=== PATIENT | male | born 1975 | race African-American/Black ===

== ENCOUNTER 2018-08-27 12:45 | Inpatient (IN) ==
[2018-08-27] MEDS ORDERED: ATIVAN IV ONE (13:59)
--- NOTE | 2018-08-27 14:09 | PROVIDER DOCUMENTATION ---
This chart was entered by Lexie Loja Scribe, acting as scribe for Herb Ruggiero MD. HPI-Neurological Disorder - General Chief Complaint: Stroke-Like Symptoms Stated Complaint: WEAKNESS Time Seen by Provider: 08/27/18 13:12 Source: patient Allergies/Adverse Reactions: Patient Allergies Allergy/AdvReac Type Severity Reaction Status Date / Time ibuprofen [From Motrin] AdvReac Intermediate SEVERE Verified 10/21/14 12:05 ABDOMINAL PAIN Home Medications: Home Medication List Medication Instructions Recorded Confirmed Last Taken Type Metoprolol [Lopressor] 25 mg PO DAILY 10/21/14 10/21/14 10/21/14 05:30 History - History of Present Illness-Neuro Nature of Presenting Problem: Patient is a 43 year old male who presents with paresthesia and weakness to left side face, LUE and LLE. Patient reports having paresthesia last night and then started having weakness this morning when he woke. Reports having a CVA 2 months ago. States taking an 81 mg aspirin this morning. Reports having blurred vision this morning that has resolved. Severity: reports: mild Onset/Duration: reports: last night Timing: reports: still present, getting worse Context: reports: paresthesia (left facial, LUE and LLE), other (left facial, LUE and LLE weakness) Character of Altered Mental Status: reports: N/A Character of Deficits: reports: new weakness, altered sensation New weakness or altered sensation location:: reports: LUE, LLE, left facial Cognitive Baseline: alert, oriented x3 Associated Symptoms: reports: denies symptoms Similar Symptoms Previously?: Yes Recently seen or treated by another doctor?: Yes Review of Systems - Adult - REVIEW OF SYSTEMS - ADULT Constitutional: reports: no symptoms reported. denies: chills, fever, fatique Eyes: reports: no symptoms reported Ears, Nose, Mouth & Throat: reports: no symptoms reported Cardiovascular: reports: no symptoms reported. denies: chest pain, heart murmur, irregular heart rate Respiratory: reports: no symptoms reported Gastrointestinal: reports: no symptoms reported Genitourinary: reports: no symptoms reported Musculoskeletal: reports: no symptoms reported Integumentary: reports: no symptoms reported Neurological: reports: see HPI, paresthesia (left facial, LLE and LUE), other ( left facial, LLE and LUE weakness). denies: dizziness/vertigo, headache/migraines Psychiatric: reports: no symptoms reported Endocrine: reports: no symptoms reported Hematologic/Lymphatic: reports: no symptoms reported Allergic/Immunologic: reports: no symptoms reported All Other Systems: Reviewed and Negative Past History - Adult - PAST MEDICAL HISTORY-ADULT Review of Records: reports: Nursing Assessment Review, Medications Reviewed, Social history reviewed & non-contributory. Major Childhood Illnesses: reports: denies history Cardiovascular: reports: cardiac disease, HTN Respiratory: reports: denies history Gastrointestinal: reports: denies history Obstetrical/Gynecological: reports: denies history Genitourinary: reports: denies history Musculoskeletal: reports: denies history Neurological: reports: CVA Psychiatric: reports: denies history Endocrine/Immune: reports: denies history Other Conditions: reports: denies history - PRIOR SURGERIES/PROCEDURES Surgical/Procedure History: reports: appendectomy, cholecystectomy, orthopedic (extremity), other (heart cath) - IMMUNIZATION STATUS Childhood Immunizations: See Nurse Assessment Flu Vaccine: See Nurse Assessment - FAMILY HISTORY Family History: reviewed, not pertinent - SOCIAL HISTORY Smoking: cigarettes, less than 1 pack/day Provider spent 3-5 mins advising pt. on dangers of tobacco.: Discussed manners to quit use, and f/u contacts for add'l counseling. Substance Use: alcohol, marijuana Physical Exam- Neurological - Physical Exam-Neuro Initial Vital Signs Reviewed: Yes General Appearance: alert, no apparent distress. negative: lethargic, slow to respond Eye Exam: bilateral eye: normal inspection, PERRL, EOMI HENMT: moist mucous membranes. negative: angioedema, hearing deficit Head Injury: no evidence of injury. negative: contusions, ecchymosis, lacerations Neck: non-tender, normal inspection. negative: tender midline Respiratory: chest non-tender, lungs clear, normal breath sounds. negative: rales, rhonchi Cardiovascular: normal peripheral pulses, regular rate, rhythm. 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 negative: abnormal speech, facial droop Motor/Sensory: sensory deficit (left facial, LUE and LLE), weak motor strength LUE, weak motor strength LLE Neurologic: motor weakness (left facial, LUE, and LLE), sensory deficit (left facial, LUE, and LLE). negative: aphasia, facial droop Integumentary: normal color, normal turgor, warm/dry. negative: cyanosis, ecchymosis, rash Psych/Mental Status: normal mood/affect, oriented x 3. negative: anxious, paranoid Progress - PLAN OF CARE/RESULTS Progress/Plan/Lab Results: Vital Signs - 8 hr 08/27/18 13:30 08/27/18 15:30 Temperature 98.5 F 98.3 F Pulse Rate 57 L 58 L Respiratory Rate 14 14 Blood Pressure 165/103 171/99 O2 Sat by Pulse Oximetry 98 99 Laboratory Results - last 24 hr 08/27/18 08/27/18 08/27/18 15:41 15:45 15:45 WBC 7.56 RBC 4.82 Hgb 16.0 Hct 46.0 MCV 95.4 MCH 33.2 H MCHC 34.8 RDW Std Deviation 12.0 Plt Count 210 MPV 9.8 Immature Gran % (Auto) 0.3 Neut % (Auto) 59.6 Lymph % (Auto) 30.6 Edmunds % (Auto) 5.4 Eos % (Auto) 3.7 Baso % (Auto) 0.4 Immature Gran # (Auto) 0.02 Neut # (Auto) 4.51 Lymph # (Auto) 2.31 Edmunds # (Auto) 0.41 Eos # (Auto) 0.28 Baso # (Auto) 0.03 PT INR PTT (Actin FS) Sodium 140 Potassium 3.4 L Chloride 104 Carbon Dioxide 29 Anion Gap 7 BUN 9 Creatinine 1.0 Estimated GFR/1.73 m2 > 60 BUN/Creatinine Ratio 9 Glucose 88 Calculated Osmolality 278 Calcium 9.2 Total Bilirubin 0.67 AST 16 ALT 14 Alkaline Phosphatase 79 Troponin T Total Protein 7.1 Albumin 4.1 Globulin 3.0 Albumin/Globulin Ratio 1.4 Urine Source CLEAN CATCH Urine Color YELLOW Urine Turbidity CLEAR Urine pH 6.5 Ur Specific [place] 1.005 Urine Protein NEGATIVE Ur Glucose (Stick) NEGATIVE Ur Ketones (Stick) NEGATIVE Urine Blood NEGATIVE Urine Nitrite NEGATIVE Urine Bilirubin NEGATIVE Urobilinogen Dipstick NORMAL Urine Leukocytes NEGATIVE Urine WBC (Auto) <10 Urine RBC (Auto) <10 U Epithel Cells (Auto) <10 Urine Bacteria (Auto) NEGATIVE 08/27/18 08/27/18 15:45 15:45 WBC RBC Hgb Hct MCV MCH MCHC RDW Std Deviation Plt Count MPV Immature Gran % (Auto) Neut % (Auto) Lymph % (Auto) Edmunds % (Auto) Eos % (Auto) Baso % (Auto) Immature Gran # (Auto) Neut # (Auto) Lymph # (Auto) Edmunds # (Auto) Eos # (Auto) Baso # (Auto) PT 13.6 INR 0.96 PTT (Actin FS) 29.4 Sodium Potassium Chloride Carbon Dioxide Anion Gap BUN Creatinine Estimated GFR/1.73 m2 BUN/Creatinine Ratio Glucose Calculated Osmolality Calcium Total Bilirubin AST ALT Alkaline Phosphatase Troponin T < 0.010 Total Protein Albumin Globulin Albumin/Globulin Ratio Urine Source Urine Color Urine Turbidity Urine pH Ur Specific [place] Urine Protein Ur Glucose (Stick) Ur Ketones (Stick) Urine Blood Urine Nitrite Urine Bilirubin Urobilinogen Dipstick Urine Leukocytes Urine WBC (Auto) Urine RBC (Auto) U Epithel Cells (Auto) Urine Bacteria (Auto) Orders Category Date Time Status Admit Patient To Observation Status Routine AdmDCTranf 08/27/18 17:[address] HEAD W/O CONTRAST [CT] Stat Exams 08/27/18 13:30 Completed CBC WITH ELECTRONIC DIFF [HEME] Stat Lab 08/27/18 15:45 Completed COMPREHENSIVE METABOLIC PANEL [CHEM] Stat Lab 08/27/18 15:45 Completed PT [PROTIME WITH INR] [COAG] Stat Lab 08/27/18 15:45 Completed PTT [COAG] Stat Lab 08/27/18 15:45 Completed TROPONIN T Stat Lab 08/27/18 15:45 Completed URINALYSIS [URINALYSIS] Stat Lab 08/27/18 15:41 Completed Aspirin Med 08/27/18 15:33 Discontinued 325 mg PO NOW ONE Lorazepam [Ativan] Med 08/27/18 13:59 Discontinued 1 mg IV NOW ONE Potassium Chloride E.r. [Klor-Con] Med 08/27/18 17:30 Active 40 meq PO Q4H EKG [EKG] Stat Ther 08/27/18 14:01 Draft Transfer/Admit Order [TRANSFER] Routine Transfer 08/27/18 17:27 Ordered Result Diagrams: 08/27/18 15:45 08/27/18 15:45 - EKG 1 Time of EKG reading by physician:: 14:15 EKG Read and Signed by:: Herb Ruggiero EKG Interpretation (*Must complete 3 of following elements*): Abnormal Rate: 55 Rhythm: sinus bradycardia HI Interval: normal Comments: otherwise normal ECG - CT/MRI 1 CT Study: Head Impression: See EMR Report ( EXAM: CT HEAD W/O CONTRAST HISTORY: stroke like sx TECHNIQUE: CT head without contrast COMPARISON: None. FINDINGS: No parenchymal hemorrhage. No epidural or subdural hematoma. No subarachnoid hemorrhage. No mass identified on this noncontrasted exam. No hydrocephalus. No sinus opacification. IMPRESSION: No hemorrhage. Negative brain CT without contrast. This exam was performed using automated exposure control, adjustment of mA or kV according to patient size, and/or use of iterative reconstruction technique. Electronically signed by Wild Kruger 08/27/2018 2:30 PM 08/27/18 1430 Interpreting Physician: Wild Kruger MD Dictated Date/Time: 08/27/18 1428 cc: Herb Ruggiero MD; None,PCP) - CONSULTS/PCP/HOSPITALIST Notification #1 *Consult/PCP/Hospitalist*: MEETA Allen for Hospitalist Time Discussed: 16:38 Reason/Comments: Dr. Ruggiero consulted with Tiffany about patient. Consult Disposition: Will see in ED, Admit Departure - Departure Date of Disposition Decision: 08/27/18 Time of Disposition Decision: 16:38 DIAGNOSIS: CVA (cerebral vascular accident), HTN (hypertension) Disposition: ADMITTED INPATIENT 09 Certified Medical Emergency: Emergent Condition: Stable Referrals and Follow-Ups: None,PCP [Primary Care Provider] - Discharge Education: Steps to Quit Smoking, [id number] - Critical Care Note This patient required my direct & personal management of CC.: No Attestation - Physician/ NIKI Attestation Patient care was provided by Advanced Practice Provider:: No The physician spent face to face time with patient:: Yes Advanced Practice Provider documentation review:: Supervising physician onsite and consulted in the evaluation and care of this patient. The physician did have a face to face encounter with the patient. - NIH Stroke Scale Level of Consciousness: 0-Alert LOC Questions (ask month and age): 0-Answers Both Correctly LOC Commands (ask to open & close eyes;make a fist, let go): 0-Obeys Both Correctly Best Gaze (horizontal eye movement): 0-Normal Visual (use finger movement, counting or visual threat): 0-No Visual Loss Facial Palsy (show teeth or raise eyebrows & close eyes tght: 0-Symmetrical Movement Motor Function-left arm: 1-Drift Motor Function-right arm: 0-Normal Motor Function-left le-Drift Motor Function-right le-Normal Limb Ataxia(mcgcrq-baay-bggkyh, or heel to fishman): 0-No Ataxia Sensory(pin prick to face,arms,trunk,legs-compare side/side): 1-Mild to Moderate Decrease in Sensation Best Language(name item/read sentence.Ex-Down to Earth): 0-No Aphasia Dysarthria(Pt read words or say words Ex.Mama,Tip-Top,Thanks: 0-Normal Articulation Extinction and Inattention: 0-Normal NIH Total Score: 3 This chart was documented by the indicated scribe, (Lexie Loja, [place]) and accurately reflects the services I performed and decisions made by me, Herb Ruggiero MD, as attested by the provider's signature.
--- NOTE | 2018-08-27 14:30 | EKG Report ---
Test Performed on : 08/27/2018 2:15:21 PM Test Reason : stroke Blood Pressure : / mmHG Vent. Rate : 055 BPM Atrial Rate : 055 BPM P-R Int : 154 ms QRS Dur : 102 ms QT Int : 412 ms P-R-T Axes : 075 044 030 degrees QTc Int : 394 ms Sinus bradycardia. Otherwise normal ECG When compared with ECG of 21-OCT-2014 14:43, No significant change was found Unconfirmed Result
--- NOTE | 2018-08-27 14:32 | Diag Imaging Result Doc PS360 ---
EXAM: CT HEAD W/O CONTRAST HISTORY: stroke like sx TECHNIQUE: CT head without contrast COMPARISON: None. FINDINGS: No parenchymal hemorrhage. No epidural or subdural hematoma. No subarachnoid hemorrhage. No mass identified on this noncontrasted exam. No hydrocephalus. No sinus opacification. IMPRESSION: No hemorrhage. Negative brain CT without contrast. This exam was performed using automated exposure control, adjustment of mA or kV according to patient size, and/or use of iterative reconstruction technique. Electronically signed by Wild Kruger 08/27/2018 2:30 PM
[2018-08-27] MEDS ORDERED: ASPIRIN PO ONE (15:33)
[2018-08-27 15:56] LABS: URINE SOURCE CLEAN CATCH
[2018-08-27 15:59] LABS: BASO# 0.03 X1000 (0.0-0.2); BASO% 0.4 % (0.0-0.8); EOS# 0.28 X1000 (0.0-0.7); EOS% 3.7 % (0.0-10.0); IMM GRAN# 0.02 X1000 (0.0-0.04); IMM GRAN% 0.3 % (0.0-0.5); LYMPH# 2.31 X1000 (1.2-3.4); LYMPH% 30.6 % (20.5-51.1); MCH 33.2 PG (27-31); MCHC 34.8 g/dL (33-37); MCV 95.4 FL (81-99); MONO# 0.41 X1000 (0.11-0.59); MONO% 5.4 % (1.7-9.3); MPV 9.8 FL (7.4-10.4); NEUT# 4.51 X1000 (1.4-6.5); NEUT% 59.6 % (42.2-75.2); PLT 210 X1000 (130-400); RBC 4.82 XMIL (4.7-6.1); WBC 7.56 X1000 (4.8-10.8)
[2018-08-27 16:14] LABS: INR 0.96; PROTIME 13.6 Seconds (11.0-16.0)
[2018-08-27 16:15] LABS: PTT 29.4 Seconds (22.3-41.8)
[2018-08-27 16:17] LABS: AGAP 7; ALB/GLOB RATIO 1.4; ALBUMIN 4.1 g/dL (3.5-5.0); ALKALINE PHOSPHATASE 79 U/L (32-122); BUN 9 mg/dL (8-22); CALCIUM 9.2 mg/dL (8.8-10.2); CHLORIDE 104 mmol/L (98-107); COSMO 278; ESTIMATED GFR > 60; GLUCOSE 88 mg/dL (70-104); GOT 16 U/L (10-34); GPT 14 U/L (10-44); POTASSIUM 3.4 mmol/L (3.5-5.1); SODIUM 140 mmol/L (136-145); TCO2 29 mmol/L (25-35); TOTAL BILIRUBIN 0.67 mg/dL (0.20-1.00); TOTAL PROTEIN 7.1 g/dL (6.3-8.3)
[2018-08-27 16:19] LABS: BILIRUBIN URINE NEGATIVE (NEGATIVE); BLOOD URINE NEGATIVE (NEGATIVE); COLOR YELLOW; GLUCOSE URINE NEGATIVE (NEGATIVE); KETONE URINE NEGATIVE (NEGATIVE); LEUKOCYTES URINE NEGATIVE (NEGATIVE); NITRITE URINE NEGATIVE (NEGATIVE); PH URINE 6.5; PROTEIN URINE NEGATIVE (NEGATIVE); SP GRAVITY URINE 1.005; TURBIDITY URINE CLEAR (CLEAR); UROBILINOGEN URINE NORMAL (NORMAL)
[2018-08-27 16:24] LABS: UR EPITHELIAL CELLS <10 /HPF (<10); URINE BACTERIA NEGATIVE /HPF; URINE RBC <10 /HPF (<10); URINE WBC <10 /HPF (<10)
[2018-08-27] MEDS: KLOR-CON PO SCH ×2 (17:30→21:00)
[2018-08-27] MEDS ORDERED: TYLENOL PO PRN (18:01)
[2018-08-27 18:58] LABS: UR AMPHETAMINES QUAL NONE DETECTED (NONE DETECT); UR BARBITUATES QUAL NONE DETECTED (NONE DETECT); UR BENZODIAZEPIN QUAL NONE DETECTED (NONE DETECT); UR CANNABINOIDS QUAL PRESUMPTIVE POSITIVE (NONE DETECT); UR COCAINE QUAL NONE DETECTED (NONE DETECT); UR METHADONE QUAL NONE DETECTED (NONE DETECT); UR OPIATES QUAL NONE DETECTED (NONE DETECT); UR OXYCODONE QUAL NONE DETECTED (NONE DETECT); UR PCP QUAL NONE DETECTED (NONE DETECT)
--- NOTE | 2018-08-27 19:02 | HISTORY AND PHYSICAL ---
CHIEF COMPLAINT: Left upper extremity and left lower extremity weakness. HISTORY OF PRESENT ILLNESS: Mr. Gomes is a 43-year-old man with reported past medical history of CVA affecting left side of body. He was sent from his employment because of abnormal behavior and left upper extremity/left lower extremity weakness. The patient is not able to contribute to the history meaningfully, as he does not answer questions appropriately and he says he wants to sleep. He also states that he has been under a lot of stress. Apparently the patient states that he had a stroke affecting left upper and lower extremity in 06/2018 and was at [facility] for that. Since then he has had persistent numbness; however, today something happened at work, he is not sure what, which made coworkers called emergency medical services. He also tells me that when he woke up he was not feeling well and he took 2 doses of his baby aspirin, but could not tell me what was wrong. In the emergency room he was found to have normal vital signs except slight hypertension. CT scan of head was unremarkable. SUBJECTIVE: At the time of my evaluation, the patient is not able to tell me initially the reason why he is in the hospital and I had to prompt him with a lot of questions before he could tell me that he was sent from his working facility. He states that he wants to eat at the moment. He states he previously had history of hypertension and hyperlipidemia; however, otherwise he is not able to provide meaningful history. REVIEW OF SYSTEMS: Negative for headache, negative for blurring of vision. Negative for chest pain or shortness of breath. Otherwise, 12-point review of systems is unremarkable. HOME MEDICATION: He is listed to be taking metoprolol; however, he tells me that he takes amlodipine, could not tell me the dose, and baby aspirin. He also takes a cholesterol medication. Medication reconciliation is pending. PAST MEDICAL HISTORY: Includes CVA affecting left side upper and lower extremities, essential hypertension, hyperlipidemia. PAST SURGICAL HISTORY: Includes cholecystectomy, appendectomy and right wrist surgery because of fracture. ALLERGIES: He is listed to be allergic to ibuprofen. PERSONAL HISTORY: He was a 0-izvx-o-day smoker until a few years ago. Currently he smokes 1 or 2 cigarettes a day. He started smoking in his young age, so approximately he might have about 15 to 80-hjcq-hbzq smoking history. He is an occasional drinker. He is an occasional marijuana user. He denies the use of recreational substances, though, recently. His last marijuana was a few days ago. FAMILY HISTORY: He is not able to provide any family history meaningfully. PHYSICAL EXAMINATION: VITAL SIGNS: Currently vital signs suggest he is afebrile with temperature of 98.3 degrees, pulse 58, respiratory rate 14, blood pressure 170/99, saturating 99% on room air. GENERAL: He does not appear in any acute distress. HEENT: Oral cavity is moist. LUNGS: Air entry bilaterally equal. No wheeze, rhonchi or crackles. HEART: S1, S2 normal. No murmur, rub or gallop. ABDOMEN: Soft, nontender. He has a midline scar of previous abdominal surgery. EXTREMITIES: No lower extremity edema. He also has a well-healed scar of wrist surgery on the right wrist. NEUROLOGICAL: He is alert. He is oriented to himself, to me, to place but not with the situation entirely. Cranial nerve examination: Vision is grossly intact. Pupils are bilaterally equal, reacting to light. He is able to track both sides of the midline and up and down. He does not have any facial asymmetry. He is able to raise eyebrows and smile equally bothside of midline. He has good cough and swallowing. He is not able to answer the question related to taste. He is able to protrude tongue in midline. He is able to shrug both of his shoulders; however, has weakness of the left shoulder. Sensory examination: He denies being able to sense anything on crude touch on left upper and left lower extremity. On motor examination he has power 5/5 in right upper and lower extremity. He has power 0/5 in left upper and left lower extremity on examination; however, later on he was able to move in the bed using his left upper and left lower extremity while repositioning, but when I asked him to move his extremity, he states he is not able to. There is some inconsistency in neurological examination; however, during my examination he has significantly decreased anesthesiology medical doctor strength on left. His Babinski reflex has inconsistent response, but mostly it is plantar flexion bilaterally. His speech appears normal. I could not elicit cerebellar reflexes properly as he did not cooperate. LABORATORY DATA: Labs suggestive of normal hemoglobin, hematocrit and platelet. Normal coagulation. Hypokalemia, being replenished and normal urinalysis. Urine toxicology is pending. DIAGNOSTIC DATA: EKG is suggestive of normal sinus rhythm with sinus bradycardia. CT scan head did not have any acute intracranial pathology or old stroke. ASSESSMENT AND PLAN: Left upper extremity and left lower extremity weakness and decreased sensation. I am unclear if this is new or old. Head CT did not detect even an old infarct. It is possible this is a new-onset cerebrovascular accident. I will admit the patient under telemetry unit. He has received a dose of aspirin 325 mg. I will keep him on baby aspirin, high- dose statin, allow permissive hypertension up to systolic blood pressure of 220. Follow up with ultrasound carotids, MRA brain, MRI brain with and without contrast, and echocardiogram. We will observe him in the telemetry unit. He does have history of right wrist surgery. He is not able to provide the details, so I will go ahead and get an x-ray to rule out any metal object if the MRI services warrant. I will keep him on enoxaparin for deep venous thrombosis prophylaxis. Plan of care discussed with the patient. All of his questions been answered. cc: Jay Garrido MD MTDD
--- NOTE | 2018-08-27 21:01 | Diag Imaging Result Doc PS360 ---
EXAM: WRIST 2 VIEWS-RIGHT INDICATION: Rule out metal object. TECHNIQUE: 2 views COMPARISON: None. FINDINGS: There are mild degenerative changes at the radiocarpal joint and the MCP joint of the first digit. There is no discrete fracture, dislocation, or significant intrinsic osseous lesion, otherwise. Surrounding soft tissues are essentially unremarkable. No embedded radiopaque foreign body is identified. IMPRESSION: No embedded radiopaque foreign body identified. Electronically signed by Bird Clemens 08/27/2018 8:59 PM
[2018-08-28 05:53] LABS: BASO# 0.02 X1000 (0.0-0.2); BASO% 0.3 % (0.0-0.8); EOS# 0.31 X1000 (0.0-0.7); EOS% 5.3 % (0.0-10.0); HEMATOCRIT 43.8 % (42.0-52.0); HEMOGLOBIN 15.3 g/dL (14.0-18.0); IMM GRAN# 0.02 X1000 (0.0-0.04); IMM GRAN% 0.3 % (0.0-0.5); LYMPH# 2.02 X1000 (1.2-3.4); LYMPH% 34.3 % (20.5-51.1); MCH 33.3 PG (27-31); MCHC 34.9 g/dL (33-37); MCV 95.2 FL (81-99); MONO# 0.44 X1000 (0.11-0.59); MONO% 7.5 % (1.7-9.3); NEUT# 3.08 X1000 (1.4-6.5); NEUT% 52.3 % (42.2-75.2); PLT 211 X1000 (130-400); RDW 11.8 % (11.5-14.5); WBC 5.89 X1000 (4.8-10.8)
[2018-08-28 06:24] LABS: AGAP 7; ALB/GLOB RATIO 1.4; ALBUMIN 3.7 g/dL (3.5-5.0); ALKALINE PHOSPHATASE 72 U/L (32-122); BUN 10 mg/dL (8-22); CHLORIDE 108 mmol/L (98-107); COSMO 278; ESTIMATED GFR > 60; GLUCOSE 98 mg/dL (70-104); GOT 15 U/L (10-34); GPT 12 U/L (10-44); POTASSIUM 4.4 mmol/L (3.5-5.1); SODIUM 140 mmol/L (136-145); TCO2 25 mmol/L (25-35); TOTAL BILIRUBIN 0.75 mg/dL (0.20-1.00); TOTAL PROTEIN 6.4 g/dL (6.3-8.3)
[2018-08-28 06:29] LABS: CHOLESTEROL 164 mg/dL (0-200); HDL 36 mg/dL (35-55); LDL 104 mg/dL; TRIGLYCERIDES 122 mg/dL (39-160); VLDL 24 mg/dL
--- NOTE | 2018-08-28 09:24 | Diag Imaging Result Doc PS360 ---
MRI BRAIN W/WO CONTRAST - 08/27/2018 INDICATION: Left upper and lower ext weakness. Rule out CVA. COMPARISON: Head CT 08/27/2018 FINDINGS: The ventricles and sulci are normal in size and contour. No intracranial mass or hemorrhage. There is a single tiny focus of increased signal in the periventricular right white matter centrally. There is no abnormal contrast enhancement. There is right-sided mastoiditis. IMPRESSION: 1. Right-sided mastoiditis. 2. Minimal nonspecific white matter hyperintensity in the right central periventricular cerebral hemisphere. Electronically signed by Zachary Cunningham 08/28/2018 9:21 AM
--- NOTE | 2018-08-28 09:27 | Diag Imaging Result Doc PS360 ---
MRA BRAIN W/O CONTRAST - 08/27/2018 INDICATION: Rule out CVA TECHNIQUE: Noncontrast idhe-ts-[id number] technique was used COMPARISON: None FINDINGS: There is variant anatomy, the right anterior cerebral artery arises from the left anterior cerebral artery at the level of the anterior communicating artery, with no connection to the right internal carotid artery. There is no aneurysm or stenosis. No significant atherosclerotic irregularity. IMPRESSION: Variant anatomy. No acute disease. Electronically signed by Zachary Cunningham 08/28/2018 9:24 AM
[2018-08-28] MEDS: LOVENOX SUBQ SCH (10:27)
[2018-08-28] MEDS: ASPIRIN PO SCH (10:27)
--- NOTE | 2018-08-28 16:26 | ECHO REPORT ---
ORDER DATE: 08/27/2018 INTERPRETING PHYSICIAN: Александр Kc MD INDICATION: Thrombosis, stroke. M-MODE MEASUREMENTS: Left ventricle end diastole: 5.2 cm. Left ventricle end systole: 3.5 cm. Posterior wall: 1.1 cm. Interventricular septum: 1.1 cm. Left atrium: 3.1 cm. Aortic diameter: 3.1 cm. SUMMARY OF 2-DIMENSIONAL IMAGIN. Left ventricular function is normal. Ejection fraction is 62%. No wall motion abnormality is noted. 2. The aortic valve looks normal. Color flow mapping unremarkable. 3. The mitral valve looks normal. Color flow mapping unremarkable. 4. Pulsed wave Doppler of mitral inflow shows normal E/A ratio. 5. Tissue Doppler of septal and lateral mitral annulus averages 7 cm. There is no diastolic dysfunction. 6. Pulmonary venous flow is normal. 7. The pulmonic valve looks normal. Color flow mapping unremarkable. 8. The tricuspid valve shows a mild degree of regurgitation. 9. Pulmonary pressure is estimated at 26 mmHg. 10.There is no pericardial effusion, mass, and no thrombus. The study appears to be grossly within normal limits. cc: MD Jay Motley MD
--- NOTE | 2018-08-28 17:06 | PROGRESS NOTE ---
DATE: 08/28/2018 INTERVAL HISTORY: No acute events overnight. The patient has gotten his echocardiogram, ultrasound of carotids, the results of which are pending. He was asking me if he should go home. I discussed with him about still pending echocardiogram and ultrasound results and abnormal MRI finding and need for a Neurology evaluation. Currently, he is much more awake and alert and he is answering all questions appropriately. He tells me that he had been feeling unusual since yesterday morning. However, he made himself go to work. However, he then started feeling worsening of numbness and tingling of left upper and lower extremity, which prompted him to come to the emergency room. Currently, he states his weakness has pretty much resolved. He still has some numbness of the left upper and left lower extremity, which is better than before. OBJECTIVE: Vital signs: Temperature 98.3 degrees, pulse 61, respiratory 18, blood pressure 170/80, saturating 98% on room air. General: He does not appear in any acute distress. HEENT: Oral cavity is moist. Lungs: Air entry bilaterally equal. No wheeze, rhonchi, crackles. Cardiovascular: S1, S2 normal. No murmur, rub, or gallop. Abdomen: Soft, nontender. Extremities: No lower extremity edema. Neurologic: He is alert and oriented x3. Cranial nerve examination: No obvious facial asymmetry. His vision is grossly intact. Extraocular movements both sides of midline. Facial sensations intact. His hearing, speech, tongue protrusion, and cough are normal. He does have decreased sensation of left lower extremity as compared to right in the leg and foot. Otherwise, sensation is intact bilaterally. Motor examination is 5/5. Reflexes 2+. No dysdiadochokinesia. I did not check his gait, but he says he was able to come out of bed and go to the bathroom. MICROBIOLOGY: No data. IMAGING: Brain MRI had a right-sided mastoiditis. There was minimal white matter hyperintensity in the right central periventricular cerebral hemisphere which is nonspecific as per the report. Brain MRA had without any acute disease. LABORATORY: No leukocytosis. Hemoglobin, hematocrit, and platelets were normal. His potassium was repleted. His lipid panel had LDL of 104. ASSESSMENT: 1. Suspected cerebrovascular accident. 2. Hypertension with medication noncompliance. 3. Prior history of cerebrovascular accident, pending reports from [facility] in June 2018. 4. Marijuana use disorder. PLAN: Continue aspirin and add Plavix. Continue high-dose atorvastatin. I will start him on metoprolol once medication reconciliation is complete. I would also appreciate Neurology recommendations regarding further management. The patient mentions to me that previously he was told he had some congenital heart disease, the details of which are unclear. So, I decided to keep the patient inside the hospital as I await final echocardiogram results to rule out any intraventricular thrombus and I will also await ultrasound of carotids results. If both of them are within acceptable range, my plan is to discharge the patient home tomorrow. cc: Jay Garrido MD MTDD
[2018-08-28] MEDS: LOPRESSOR PO SCH ×2 (18:57→20:39)
[2018-08-28] MEDS ORDERED: LIPITOR PO SCH (21:00)
[2018-08-29 07:57] VITALS: BP 145/99
[2018-08-29] MEDS ORDERED: PLAVIX PO SCH (09:00)
[2018-08-29] MEDS: ASPIRIN PO SCH (09:29)
[2018-08-29] MEDS: LOPRESSOR PO SCH (09:30)
[2018-08-29] MEDS: LOVENOX SUBQ SCH (09:30)
--- NOTE | 2018-08-29 10:29 | CONSULTATION ---
DATE OF CONSULTATION: 08/29/2018 HISTORY OF PRESENT ILLNESS: Mr. Gomes is 43 years old and there is question of stroke. History from the patient is that he first had symptoms about 3 months ago with weakness and numbness in the right limbs, mostly in the leg causing him to have unsteady gait and he reports he asked his mother then if there might be a cane or crutch he could use. Those symptoms resolved within a few days, by his report. There was no facial asymmetry, speech difficulty, language deficit, vision disturbance, headache. A few weeks later, he noted similar symptoms with more discomfort and some tingling in the left limbs with unsteady gait. There was facial asymmetry. He had intended to help a relative with some work, but decided he should not do that because he felt bad. He was sleeping later and was waked by telephone call and apparently had some slurred speech on the telephone. He was taken by ambulance to [facility]. I have reviewed the records provided by [facility] showing moderately elevated blood pressures, complaint of left-sided numbness and weakness. Some examiners reported weakness in the left limbs and others reported normal strength and no focal deficits. "No effort" was listed on the NIHSS form for motor power in the left limbs. Workup included noncontrast CT of the head unremarkable, noncontrast brain MRI unremarkable (with no comment on the right hemisphere signal that we see on scan this admission), noncontrast CT of the cervical spine unremarkable, noncontrast CT of the lumbar spine showing degenerative changes, lumbar MRI showing degenerative changes, carotid ultrasound unremarkable. I believe he was discharged on amlodipine and hydrochlorothiazide, aspirin 81 mg, atorvastatin, but not metoprolol, which he reports he has been taking. Today, Mr. Gomes reports the left side has not felt completely recovered to normal since then, but he has been able to do some work. He did not have any more dramatic episodes until 2 days ago when he felt very weak, weaker on the left side, generally just felt bad in a way that is hard for him to describe. He felt tired and exhausted. He pushed himself to get up and get ready for work. He noticed face was crooked in the mirror. He went to work, was advised to present to the hospital, and did so. He was evaluated in the emergency room and admitted. He reports symptoms are much improved over the last 2 days, but still not back to baseline of several days ago. There are some inconsistencies in his history, and what I have recorded above is my best guess based on his report. PHYSICAL EXAMINATION: On exam, he is awake, alert, attentive. Speech is not dysarthric. Language function is intact. Memory seems good. Head and neck are unremarkable. Visual caballero are full tested grossly by confrontational finger counting. Extraocular movements are full. Facial motility is normal and symmetric. Gag is intact. Tongue is midline. Hearing is good. Shoulder shrug is equal. Strength is normal in the arms and legs. There was some inconsistent effort with testing the left limbs, particularly the left lower leg, but with distraction and repeated testing, he demonstrated normal power throughout. Tone is symmetric in the limbs. He did well on [id number] and [id number] testing bilaterally. Reflexes are symmetric, grading 2+ at the knees and ankles, 1+ at the wrists. Plantar response is silent bilaterally. Proprioception is good at the left middle finger PIP joint. He reports diminished pinprick and light touch appreciation over the left side of his body extending directly to the midline, including the face, scalp, neck, trunk, and limbs. Gait is little bit wide-based without specific hemiparetic pattern. IMPRESSION: 1. Subjective left-sided weakness and numbness without definite objective finding. 2. MRI finding of small lesion in the right hemisphere, which does not show diffusion restriction and is likely not recent ischemic infarction. This could be old ischemic infarction or could be other old lesion. Since this was not reported on the scan in [place], I do not know what to make of the current finding. 3. He has risk factors for cerebrovascular ischemic problems, including hypertension, dyslipidemia, cigarette smoking. He has reduced cigarette smoking, and I encouraged him to stop smoking completely. I encouraged him to be aggressive with management of his other risk factors. I encouraged him to become established with a primary clinic. I will be glad to see him as an outpatient for Neurology follow-up, if needed. I do not think we need anything further in the way of inpatient workup right now. Thanks for asking Neurology to see Mr. Gomes. cc: MD MALI Kaiser III
[2018-08-29] MEDS ORDERED: NORVASC PO SCH (13:30)
--- NOTE | 2018-08-30 12:31 | DISCHARGE SUMMARY ---
ADMISSION DATE: 08/27/2018 DISCHARGE DATE: 08/29/2018 DISCHARGE DIAGNOSES: 1. Subjective left-sided weakness and numbness without definite objective finding, likely transient ischemic attack. 2. Hypertension with possible medication noncompliance. 3. Prior history of cerebrovascular accident in June,. 4. Dyslipidemia. 5. Tobacco abuse. 6. Possible drug abuse, marijuana. PROCEDURES PERFORMED: 1. Head CT scan dated 08/27/2018. Impression: No hemorrhage, negative brain CT without contrast. 2. Echocardiogram dated 08/27/2018. In summary, ejection fraction is 62% with no wall motion abnormality. 3. Wrist x-ray dated 08/27/2018. Impression: No foreign body identified. CONSULTATIONS: Neurology Department. HOSPITAL COURSE: A 43-year-old male with a past medical history of CVA affecting his left side of the body. He was sent from his employment because of abnormal behavior and left upper extremity and lower extremity weakness. Apparently, upon admission, the patient was not able to contribute to the history meaningfully. He was not answering questions appropriately, and he said he wants to sleep. Also, this patient states that he has been under a lot of stress. As per the patient, he had a stroke affecting his left upper and lower extremity in June of 2018 at [facility]. Since then, he has had persistent numbness, however, the day of admission on 08/27/2018 as per the patient something happened at work. He is not sure about what happened, which made coworkers call [facility]. Apparently, he woke up and he was not feeling well. He took 2 doses of his baby aspirin, but he could not say what was wrong. In the emergency department, he was found to have normal vital signs except for hypertension. CT of the head was unremarkable. At the time of the physician evaluation, the patient was not able to tell the reason why he was in the hospital. At the end, he said that he was sent from his working facility. He states that he has a history of hypertension and hyperlipidemia, however, otherwise, he was not able to provide any meaningful history. His left upper extremity and left lower extremity were weak compared with the right side. At that time, it was not clear if this was new or old. Urinalysis was negative except for presumptive cannabinoid use in the urine toxicology. MRI of the head and MRA of the head as well as echocardiogram and carotic ultrasound were done, but we did not see any acute abnormality. Neurology Department evaluated this patient, and they state that this patient has a subjective left-sided weakness and numbness without any definite objective finding. The MRI finding of a small lesion in the right hemisphere which does not show the fusion restriction, and is likely not recent ischemic infarction. This could probably represent an old ischemic infarction or other lesion. This patient has some risk factor for CVA including hypertension, dyslipidemia and tobacco use. He was improving on a daily basis. Today, this patient was completely alert. He was oriented, and actually he wanted to go home. His blood pressure is still slightly elevated, but better compared with admission. I increased his blood pressure medication of amlodipine. As per the patient, he was taking 5 mg daily and I increased it to 10, the metoprolol which apparently he was taking 25 mg twice a day, now 12.5 mg twice a day. We will continue with the aspirin and we added Plavix. As per the patient, his left-sided weakness was better and now with this episode it is a little bit worse so he requested a cane to us. We gave him this cane so he can walk better. Plavix was added to his medications, and probably he needs to take it just for 1 month. I explained this in detail to the patient. I explained to him that he needs to follow up with Neurology Department, Dr. Mcdonald in 2 to 3 weeks to see if he needs to take this treatment longer than that. I talked to him about his tobacco use, and take the medications as prescribed. This patient will be discharged home. Since we did not see any lesion on the MRI and MRA, he can return to work tomorrow. He can use the cane that we provided to help with walking. He needs to take his medications as prescribed, and follow up with Dr. Mcdonald in 2 to 3 weeks. He will need to call for an appointment. CONDITION ON DISCHARGE: Upon discharge, the patient was in a stable medical condition. PHYSICAL EXAMINATION: Vital Signs: Temperature 99.3 degrees, pulse 65, respiratory rate 16, blood pressure 145/99, and oxygen saturation 98 on room air. HEENT: Head normocephalic. No trauma. PERRLA. Neck: Supple. No JVD. No masses. Central trachea. Chest: Clear to auscultation. No wheezing. No rales. Abdomen: Soft, nontender, and nondistended. No hepatosplenomegaly. Extremities: No edema. No clubbing. No cyanosis. Neurological: The patient is completely alert and oriented x3. He has mild left-sided weakness around 4/5 strength. He is able to walk without assistance. LABORATORY: No lab work done today, but yesterday WBC 5.8, hemoglobin 15.3, hematocrit 43.8, and platelets 211,000. Sodium 140, potassium 4.4, chloride 108, bicarbonate 25, BUN 10, creatinine 1, glucose 100, calcium 9, AST 15, ALT 12, and alkaline phosphatase 72, albumin 3.7, triglyceride 122, cholesterol 164, LDL 104, HDL 36 and TSH 0.86. DISCHARGE MEDICATIONS: 1. Acetaminophen 350 mg p.o. q.6 hours p.r.n. 2. Amlodipine 10 mg p.o. daily. 3. Aspirin 81 mg p.o. daily. 4. Atorvastatin 40 mg p.o. at bedtime. 5. Clopidogrel 75 mg p.o. daily for 1 month. 6. Lopressor 12.5 mg p.o. twice a day. TIME SPENT: Time discharging this patient 35 minutes. cc: Ney Rolon MD MTDD
--- NOTE | 2018-09-01 17:45 | Carotid Study ---
DATE: 08/27/2018 PROCEDURE: Bilateral carotid duplex. REQUESTING PHYSICIAN: Dr. Garrido. INTERPRETING PHYSICIAN: Dr. Carlos Sam. TECH: [employer]. INDICATIONS: Left side weakness. TIA versus CVA. OBSERVED DATA RIGHT LEFT Brachial Blood Pressure Carotid Pulse Bruits: Carotid/Sub DIAGRAM OF ULTRASOUND IMAGING R L RIGHT INT EXT INT EXT LEFT Wai (cm/s) Wai (cm/s) Subclavian 116/0 Subclavian 136/0 CCA Proximal 95/10 CCA Proximal 116/19 CCA Distal 77/19 CCA Distal 60/18 Bulb 77/17 Bulb 58/17 ICA Proximal 50/22 ICA Proximal 41/11 ICA Mid 59/23 ICA Mid 60/28 ICA Distal 55/25 ICA Distal 72/37 ECA 84/19 ECA 89/18 Vertebral 35/5 A Vertebral 42/17 A ICA/CCA Ratio 0.62 ICA/CCA Ratio 0.64 % Stenosis 0-39% % Stenosis 0-39% FINDINGS: No significant atherosclerotic change is noted in the right carotid artery system. There is noncalcified plaque in the left carotid bulb proximal internal carotid artery but no hemodynamically significant lesion noted here. cc: MD Jay Jean MD
== END 2018-08-29 16:32 | disposition home or self-care (01) | DRG 69 ==
LOC: EDIPHOLD 12:45 → ED 12:45 → OBSVTOIN 17:48 → SUATTDRO 17:48 → 4N 08-28 06:53
PROVIDERS: ATTEND Internal Medicine
CPT/HCPCS: 70450; 70544; 70553; 73100; 80053; 80061; 80101; 80301; 80307; 80324; 80345; 80346; 80353; 80358; 80361; 80365; 81001; 82948; 83992; 84443; 84484; 85025; 85610; 85730; 93005; 93306; 93880; 96374; 97116; 97162; 97530; 99285; A9270; A9579; G0431; G0434; G0479; G0480; J1650; J2060; XXXXX